=== PATIENT | female | born 1955 | race Caucasian/White ===

== ENCOUNTER 2025-04-26 02:33 | Observation (INO) | payer MEDICARE, SELFPAY ==
[2025-04-26] VITALS (11 sets, daily range): BP systolic 125–214; BP diastolic 64–110; PULSE 60–95; RESP 14–20; TEMP 36.6–37.1; O2SAT 94–96; BMI 30.7; BMI 30.9
--- NOTE | 2025-04-26 02:38 | PC.NURSE ---
Patient arrived to the floor via stretcher @ 0324
--- NOTE | 2025-04-26 03:04 | ECG_ITS ---
APPROVED REPORT Exam: Resting ECG HR:67 bpm ECG Measurements Heart Rate 67 AXES VA 169 P 17 QRSd 86 QRS -24 QT 448 T 132 QTc 463 Conclusion SINUS RHYTHM MODERATE VOLTAGE CRITERIA FOR LVH, CONSIDER NORMAL VARIANT [MEETS CRITERIA IN ONE OF: R(aVL), S(V1), R(V5), R(V5/V6)+S(V1)] INFERIOR MYOCARDIAL INFARCTION , PROBABLY OLD [40+ ms Q WAVE AND/OR ST/T ABNORMALITY IN II/aVF] MODERATE T-WAVE ABNORMALITY, CONSIDER LATERAL ISCHEMIA [-0.1+ mV T-WAVE IN I/aVL/V5/V6] Electronically signed by : TERESA ULLOA, 04/26/2025 23:12:38
--- NOTE | 2025-04-26 03:07 | P.HP_ITS ---
<Statement entered by Channing Roldan MD - 04/26/25 18:39> Personally evaluated the patient and agree with plan of care as outlined by the [employer]. Patient's TFTs noted to be very abnormal, TSH 108, free T4 0.03. Patient has a history of hypothyroidism, has not been taking her levothyroxine per fill history. In fact, does not seem patient knows which medications she takes. She has had intermittent nausea/vomiting since August 2024. Also endorses weight gain, decreased energy, dry skin, brittle hair all consistent with hypothyroidism. Started IV levothyroxine 112 mcg, liothyronine 5 mcg twice daily. Follow-up morning TSH, free T4, T3. She was also noted to have new T wave inversions at [facility], possibly related to hypothyroidism. Cardiology will be consulted for further evaluation management, patient is a chronic smoker. Follow-up ECHO in the morning. Patient has had multiple episodes of nausea/vomiting during admission, may be related to hypothyroidism. Follow-up gastric emptying study in the morning. N.p.o. at midnight. GI consulted for further recommendations. Follow-up CT abdomen/pelvis. Started irbesartan 75 mg for persistent hypertension, continue home amlodipine 5 mg. Also found to have a UTI, started IV ceftriaxone 1 g daily. History of Present Illness *Admission Date: 04/26/25 *Reason for visit:: Hypertensive urgency *History of present illness: This is a 69-year-old female with a past medical history of hypertension, RA, psoriatic arthritis who presents as a transfer from [facility] for further evaluation of hypertensive urgency. Per [facility], patient has presented to the emergency department 3 times in the last 48 hours for feeling generally unwell and associated hypertension. She was noted to have systolic blood pressures greater than 200 in the ER there and was treated twice and sent home. She came back today with similar complaints of feeling generally unwell with 1 episode of vomiting. Has adamantly denied chest pain at any point during these episodes. States that she has fallen a couple times but does not attribute the falls to dizziness. States that she would be walking and then she would just fall. Denies shortness of breath. Denies any lower extremity edema. Denies any diplopia, dysarthria or unilateral weakness Emergency Department workup at the outside hospital notable for systolic blood pressure today of 230. Patient was given nitro paste as well as clonidine with reduction in blood pressure into the 150s. Of note, patient had EKG on April 24 with LVH with inferior infarct that was age-indeterminate. Upon arrival to the emergency department today she was noted to have T wave inversions in aVL and V5 through V6 which was different from prior EKG. Given her associated generalized weakness and hypertension it was felt she would benefit from cardiac evaluation given EKG changes. She presents today to our hospital completely asymptomatic. Blood pressure normalized to 120/70. States that she feels completely normal except for being tired and wanting to go to sleep. Denies chest pain. Denies headache. Denies dizziness. Denies nausea. Denies feeling unwell at this time Of note, troponins at the outside hospital negative throughout all visits. All other labs stable except for mild hypokalemia [facility] Disclaimer: The information contained in this section may have been updated after the patient was seen, as this information can be updated by other users. Medical History (Updated 04/26/25 @ 03:24 by SALEEM Beebe) Leaky heart valve Rheumatoid arthritis Hypertensive disorder Surgical History (Updated 04/26/25 @ 03:07 by Rajani Mejias RN) History of cholecystectomy History of bowel resection History of hysterectomy Social History (Updated 04/26/25 @ 03:04 by Rajani Mejias RN) Smoking Status: Current every day smoker alcohol intake: never current occupational status: other Travel in the last 8 weeks?: None Review of Systems Review of Systems Review of systems:: pertinent systems reviewed and negative unless documented below Review of systems (narrative): Negative except for HPI Meds Home Medications and Allergies Home Medications ?Medication ?Instructions ?Recorded ?Confirmed ?Type amlodipine 2.5 mg tablet 2.5 mg PO DAILY 04/26/25 History duloxetine 20 mg capsule,delayed 20 mg PO DAILY 04/26/25 History release fluconazole 150 mg tablet 150 mg PO DAILY 04/26/25 History hydroxychloroquine 200 mg tablet 200 mg PO DAILY 04/2604/26/25 History leflunomide 10 mg tablet 10 mg PO DAILY 04/26/2504/13 History omeprazole 10 mg capsule,delayed 10 mg PO DAILY 04/26/25 History release New Prescriptions to Start Prescriptions: Allergies Allergy/AdvReac Type Severity Reaction Status Date / Time Penicillins Allergy Unknown Verified 04/26/25 02:51 allergy reaction upadacitinib (From Rinvoq) Allergy Unknown Verified 04/26/25 02:51 allergy reaction Exam Constitutional Constitutional: no acute distress *Routine HEENT Exam Head: Present normocephalic Eye: Present EOMI and PERRL ENT: Present mucous membranes moist *Routine Neck Exam Neck: Present supple; Absent lymphadenopathy *Routine Respiratory Exam Respiratory: Present CTA bilaterally *Routine Cardiovascular Exam Cardiovascular: Present RRR *Routine Abdominal Exam Abdominal: Present soft and normoactive bowel sounds; Absent tenderness *Routine Rectal Exam Rectal:: deferred *Routine Genitalia Exam Genitalia:: deferred *Routine Extremities Exam Extremities: Absent cyanosis, clubbing or edema *Routine Skin Exam Skin: Present warm; Absent rash *Routine Neurological Exam Neurological: Present alert and oriented X3 Assessment and Plan *Assessment and plan (1) Abnormal EKG: Status: Acute Category: Medical Code(s): R94.31 - Abnormal electrocardiogram [ECG] [EKG] (2) Hypertensive urgency: Status: Acute Category: Medical Code(s): I16.0 - Hypertensive urgency (3) Psoriatic arthritis: Status: Acute Category: Medical Code(s): L40.50 - Arthropathic psoriasis, unspecified (4) Rheumatoid arthritis: Status: Acute Category: Medical Code(s): M06.9 - Rheumatoid arthritis, unspecified Plan #Hypertensive urgency #Abnormal EKG Per reports patient has had multiple episodes at [facility] ER for her systolic blood pressures greater than 200s. Has been treated and discharged home. Today she presented and was noted to have T wave inversions in aVL and V5 through V6. Troponin negative across multiple visits at the ER at [facility]. Troponin here pending Received nitroglycerin and clonidine at [facility] with reduction in blood pressure to systolic 120 Patient on amlodipine 2.5 mg monotherapy at home Will increase dosage for a.m. and adjust medications according to blood pressure Echocardiogram on Sunday morning Cardiology consult reports cardiology workup years ago. Has not had anything recent. Denies any stress testing in the last 10 years. Denies any recent echocardiogram Currently asymptomatic CT head at outside hospital negative #Vomiting Reports vomiting only when blood pressure is elevated. Is not nauseated at this time. Will defer any abdominal imaging #Psoriatic arthritis #Psoriatic arthritis #Rheumatoid arthritis Continue home hydroxychloroquine #Hypokalemia K of 3.4 at the outside hospital. Repeat labs pending. Replace per protocol
--- NOTE | 2025-04-26 03:10 | PC.NURSE ---
Admission assessments were completed by me to the best of my ability, for the patient kept falling asleep within seconds of asking questions. However, patient is alert and oriented x4. Medical history was also confirmed using the patient's [facility] documents. Home medication reconciliation was completed via the [facility] medical documents as well. Patient denies any symptoms (chest pain, dizziness, lightheadedness, nausea, etc.) at this time upon initial assessment. She remains resting in bed with eyes closed, respirations are even and unlabored on room air with minimal snoring, and she is in no apparent distress. EKG obtained after arrival to the second floor per Gabi He ACNP request (performed at 03:04). On continuous cardiac telemetry. Vital signs currently stable (see documentation for 03:19).
[2025-04-26 03:35] LABS: Hematocrit 38.4 % (37.0-47.0); Hemoglobin 12.8 g/dL (12.2-16.2); Immature Granulocytes % 0.2 %; Mean Corpuscular HGB Conc 33.3 g/dL (31.8-35.4); Mean Corpuscular Hemoglobin 30.0 pg (27.0-31.2); Mean Corpuscular Volume 89.9 fl (81-99); Nucleated Red Blood Cells % 0 %; Platelet Count 169 K/mm3 (142-424); Red Blood Count 4.27 M/mm3 (4.20-5.40); Red Cell Distribution Width-SD 48.9 fL; White Blood Count 6.2 K/mm3 (4.8-10.8)
[2025-04-26 03:44] LABS: Albumin Level 3.8 g/dl (3.5-5.0); Chloride 106 mmol/L (98-107); Potassium 3.5 mmoL/L (3.5-5.1); Sodium 137 mmol/L (136-145)
[2025-04-26 03:46] LABS: Cholesterol 222 mg/dl (140-200); HDL Cholesterol 42 mg/dl (40-60); Triglycerides 235 mg/dl (30-150)
[2025-04-26 03:47] LABS: Alanine Aminotransferase 14 U/L (12-78); Albumin/Globulin Ratio 1.5 (1.1-1.8); Alkaline Phosphatase 63 U/L (38-126); Anion Gap 11.5 mEq/L (5-15); Aspartate Amino Transferase 27 U/L (14-36); Bilirubin,Total 0.7 mg/dl (0.2-1.3); Blood Urea Nitrogen 14 mg/dl (7-17); Calcium 9.0 mg/dl (8.4-10.2); Carbon Dioxide 23 mmol/L (22.0-30.0); Creatinine Clearance Estimated 66 mL/min (50-200); Creatinine,Serum 0.90 mg/dl (0.52-1.04); Estimated Glomerular Filt Rate 62 ml/min (>60); GFR (African American) 76 ML/MIN (>60); Globulin 2.5 g/dL (1.3-3.2); Glucose 119 mg/dl (74-100); Total Protein,Serum 6.3 g/dl (6.3-8.2)
[2025-04-26 03:56] LABS: NT Pro Brain Natriuretic Pep. 719 pg/mL (0-125)
[2025-04-26 04:01] LABS: Troponin I < 0.01 ng/ml (0.00-0.034)
[2025-04-26 04:33] LABS: Hemoglobin A1C 5.7 % (4.0-6.0)
[2025-04-26 08:15] LABS: Troponin I < 0.01 ng/ml (0.00-0.034)
[2025-04-26] MEDS: AMLODIPINE 5MG TABLET 5 MG PO (09:04)
[2025-04-26] MEDS: POTASSIUM CHLORIDE 20MEQ TAB 40 MEQ PO ×2 (09:04→11:45)
[2025-04-26] MEDS: ASPIRIN EC 81MG TABLET 81 MG PO (09:04)
[2025-04-26 09:26] LABS: Troponin I < 0.01 ng/ml (0.00-0.034)
[2025-04-26] MEDS: ONDANSETRON 4MG/2ML VIAL 4 MG IV (09:34)
[2025-04-26 10:39] LABS: Thyroid Stimulating Hormone 108.00 uIU/mL (0.465-4.68)
--- NOTE | 2025-04-26 10:47 | P.CONPHA_ITS ---
Pharmacy Intervention Comments: MEDICATION RECONCILIATION COMPLETE VIA PHONE CALL TO [facility] IN [place].
--- NOTE | 2025-04-26 10:47 | HMH.PHAINT1 ---
Pharmacy Intervention Comments: MEDICATION RECONCILIATION COMPLETE VIA PHONE CALL TO [facility] IN [place].
[2025-04-26 11:14] LABS: Free T4 (Free Thyroxine) 0.30 ng/dl (0.78-2.19)
[2025-04-26] MEDS: NICOTINE 21MG/24HR PATCH 21 MG TD (11:46)
[2025-04-26] MEDS: METOCLOPRAMIDE HCL 10MG/2ML VIAL 10 MG IVP (11:46)
[2025-04-26] MEDS: LEVOTHYROXINE SODIUM 100 MCG VIAL 150 MCG IV (11:46)
[2025-04-26 11:53] LABS: Microscopic, Urine URINE MICROSCOPIC (MICROSCOPIC)
[2025-04-26 11:54] LABS: Color,Urine YELLOW (Yellow); Glucose,Urine (UA) Negative (Negative); Ketones,Urine TRACE (Negative); Leukocyte Esterase,Urine TRACE (Negative); PH,Urine 5.5 (5.0-8.5); Protein,Urine 2+ (Negative); Specific Gravity, Urine >= 1.030 (1.005-1.030); Urobilinogen,Urine 1.0 EU/dl (0.2)
[2025-04-26 11:58] LABS: Bilirubin,Urine 1+ (Negative)
[2025-04-26 12:34] LABS: Bacteria,Urine 2+ /lpf
[2025-04-26 12:35] LABS: WBC,Urine 20-50 #/hpf (0-3)
[2025-04-26 13:29] LABS: Troponin I < 0.01 ng/ml (0.00-0.034)
[2025-04-26] MEDS: CEFTRIAXONE 1 GM 1 GM in 0.9 % SODIUM CHLORIDE 50 ML IV (13:56)
--- NOTE | 2025-04-26 14:25 | CT_ITS ---
PROCEDURE INFORMATION: Exam: CT Abdomen And Pelvis With Contrast Exam date and time: 04/26/2025 3:58 PM Age: 69 years old Clinical indication: Nausea and vomiting; Additional info: Intractable n/v TECHNIQUE: Imaging protocol: Computed tomography of the abdomen and pelvis with contrast. Radiation optimization: All CT scans at this facility use at least one of these dose optimization techniques: automated exposure control; mA and/or kV adjustment per patient size (includes targeted exams where dose is matched to clinical indication); or iterative reconstruction. Contrast material: ISOVUE; Contrast volume: 75 ml; Contrast route: IV; COMPARISON: No relevant prior studies available. FINDINGS: Lungs: Patchy alveolar opacities in the peripheral lung bases bilaterally, possibly chronic fibrosis and subsegmental atelectasis although can not exclude pulmonary infiltrates. Heart: Heart size upper limits of normal. Coronary arteries: Coronary artery calcification is partially visualized, at least moderate in severity. Diaphragm: Moderate-sized hiatal hernia. Moderate distal esophageal wall thickening which may represent reactive changes of clinically described recent vomiting, versus esophagitis. No evidence of perforation or obstruction. Liver: Mild generalized hepatic steatosis. Normal contour. No mass lesions. No intrahepatic biliary ductal dilatation. Gallbladder and biliary ducts: Prior cholecystectomy with no significant dilatation of the common bile duct. Pancreas: Normal. No inflammatory changes or ductal dilation. Spleen: Granulomatous calcifications in the spleen without acute splenic abnormality. Adrenal glands: Normal. No adrenal mass. Kidneys and ureters: No acute abnormalities. No hydronephrosis or hydroureter. No urinary tract stones are identified. Stomach and bowel: Question mild wall/fold thickening in the small bowel and portions of the colon, although contracted status of the colon may be significantly contributing to the appearance. The findings are suspicious for mild enterocolitis. No evidence of bowel obstruction or perforation. There are a few colonic diverticula present without evidence of acute diverticulitis. Appendix: The appendix is not identified. No secondary signs of appendicitis. Intraperitoneal space: No peritoneal free fluid or air. Vasculature: No acute vascular abnormalities. Moderate calcific atherosclerosis. Lymph nodes: No adenopathy. Urinary bladder: The urinary bladder is largely contracted with wall thickening which may relate to its contracted status. Mild adjacent stranding. Correlate clinically for evidence of cystitis. Reproductive: Prior hysterectomy. Bones/joints: No acute osseous abnormalities. Mild lumbar spondylosis. Moderate disc osteoarthritic changes L1-L2. Soft tissues: No acute soft tissue abnormalities. Prior midline periumbilical hernia repair. Small hernia just to the right of the midline supraumbilical mesh component on series 3, image 67, with partial herniation of the anterior wall of an adjacent small bowel loop. No evidence of associated bowel obstruction or strangulation. IMPRESSION: 1. Findings suspicious for mild enterocolitis. No evidence of bowel obstruction or perforation. 2. Moderate-sized hiatal hernia. Moderate distal esophageal wall thickening which may represent reactive changes of clinically described recent vomiting, versus esophagitis. No evidence of perforation or obstruction. 3. Moderate peripheral interstitial and alveolar opacities in the lung bases, possibly chronic fibrosis and subsegmental atelectasis although can not exclude bilateral basilar infiltrates. 4. The urinary bladder is largely contracted with moderate wall thickening which may relate to its contracted status although there is mild adjacent stranding. Correlate clinically for evidence of cystitis. 5. Mild hepatic steatosis. 6. Additional nonemergent findings detailed above.
[2025-04-26] MEDS: PANTOPRAZOLE 40MG TABLET 40 MG PO ×2 (15:12→20:05)
[2025-04-26] MEDS: IOPAMIDOL-370 (76%);100ML BOTTLE 75 ML IV (16:01)
[2025-04-26] MEDS: SODIUM CHLORIDE 0.9% 10ML SYR (RAD ONLY) 10 ML IV (16:01)
[2025-04-26] MEDS: PROMETHAZINE HCL 25MG/ML 1ML VIAL 25 MG IV (16:26)
[2025-04-26] MEDS: SODIUM CHLORIDE 0.9% 25ML BAG 25 ML IV (16:26)
--- NOTE | 2025-04-26 17:05 | PC.NURSE ---
Addendum entered by Katherine Lomeli RN 04/26/25 17:48: Irbesartan 75mg ordered per MD. MD stated to given 2100 dose early d/t hypertension. Given as a unscheduled dose per OCT. Addendum entered by Katherine Lomeli RN 04/26/25 17:38: Pt's BP elevated this afternoon. Manual BP obtained. 206/110. MD notified. Awaiting response. No complaints at this time. Original Note: Pt is A&OX4. Vital signs stable tolerating room air. IV abx infused per OCT. Pt with c/o nausea and vomiting this shift. PRN nausea medication given per OCT with relief. CT of abdomen completed today. ECHO ordered. Potassium replaced per protocol. Cardiology consulted. NPO at midnight. Pt resting comfortably sitting up in bed with no further needs voiced at this time. Family at bedside. Call light within reach. Bed alarm in place for safety.
[2025-04-26] MEDS: IRBESARTAN 75MG TABLET 75 MG PO (17:46)
[2025-04-26] MEDS: HYDROXYCHLOROQUINE SULFATE 200MG TABLET 200 MG PO (20:05)
[2025-04-26] MEDS: LIOTHYRONINE 5 MCG 1 EACH PO (20:05)
[2025-04-27] VITALS: BP 152/87; PULSE 80; PULSE 88; RESP 14; TEMP 36.8; O2SAT 98
[2025-04-27 04:00] VITALS: BP 159/76; PULSE 101; PULSE 80; RESP 18; TEMP 36.8; O2SAT 95; BMI 30.1
--- NOTE | 2025-04-27 04:45 | PC.NURSE ---
Patient is alert and oriented x4. She was observed to be resting in bed with eyes closed, respirations even and unlabored on room air, and no apparent distress throughout the majority of the night. A family member has remained at the bedside. She has not had any complaints of nausea/vomiting, headaches, dizziness, chest pain, etc. this shift. Blood pressures are elevated but have been 150s to 160s systolic/70s to 80s diastolic throughout this shift. Normal sinus rhythm on telemetry. Lung sounds remain clear but diminished. SCDs applied for VTE prophylaxis. Patient has remained NPO since midnight pending GI and cardiology consults. Self-turns in bed, gets up with assistance during ambulation/transfers. Scheduled medications were administered per OCT (apart from Irbesartan, for the 21:00 dose was given earlier). Electrolyte replacement protocol as directed. At this time, the patient remains resting in bed. No acute changes noted thus far. Call light within reach.
--- NOTE | 2025-04-27 06:00 | NM_ITS ---
FINAL REPORT TECHNIQUE: The patient received a standard meal with 0.54 MCI of TC sulfur colloid. Images of the abdomen were obtained. The T 1/2 was calculated. CLINICAL HISTORY: Nausea/vomiting after eating for several months 10:30 am 0.54 mci tc sulfur colloid injected into 2 whole eggs and white toast with butter 6 oz water FINDINGS: Images of the abdomen are unremarkable. The T 1/2 is 63 minutes. IMPRESSION: Normal T-1/2. No evidence of gastroparesis or gastric outlet obstruction. Reviewed, Interpreted and Dictated by Tasha Muller MD Transcribed by Leidy Arce Authenticated and [facility]
[2025-04-27] MEDS: LEVOTHYROXINE SODIUM 100 MCG VIAL 112 MCG IV (06:16)
[2025-04-27 06:23] LABS: Hematocrit 40.6 % (37.0-47.0); Hemoglobin 13.4 g/dL (12.2-16.2); Immature Granulocytes % 0.4 %; Mean Corpuscular HGB Conc 33.0 g/dL (31.8-35.4); Mean Corpuscular Hemoglobin 29.5 pg (27.0-31.2); Mean Corpuscular Volume 89.4 fl (81-99); Nucleated Red Blood Cells % 0 %; Platelet Count 179 K/mm3 (142-424); Red Blood Count 4.54 M/mm3 (4.20-5.40); Red Cell Distribution Width-SD 49.3 fL; White Blood Count 5.3 K/mm3 (4.8-10.8)
[2025-04-27 06:41] LABS: Alanine Aminotransferase 16 U/L (12-78); Albumin Level 4.0 g/dl (3.5-5.0); Albumin/Globulin Ratio 1.4 (1.1-1.8); Alkaline Phosphatase 58 U/L (38-126); Anion Gap 8.4 mEq/L (5-15); Aspartate Amino Transferase 29 U/L (14-36); Bilirubin,Total 0.6 mg/dl (0.2-1.3); Blood Urea Nitrogen 11 mg/dl (7-17); Calcium 8.4 mg/dl (8.4-10.2); Carbon Dioxide 25 mmol/L (22.0-30.0); Chloride 107 mmol/L (98-107); Creatinine Clearance Estimated 64 mL/min (50-200); Creatinine,Serum 0.90 mg/dl (0.52-1.04); Estimated Glomerular Filt Rate 62 ml/min (>60); GFR (African American) 76 ML/MIN (>60); Globulin 2.9 g/dL (1.3-3.2); Glucose 98 mg/dl (74-100); Potassium 3.4 mmoL/L (3.5-5.1); Sodium 137 mmol/L (136-145); Total Protein,Serum 6.9 g/dl (6.3-8.2)
--- NOTE | 2025-04-27 07:00 | CA_ITS ---
APPROVED REPORT EXAM: Comprehensive 2D, Doppler, and color-flow Echocardiogram [employer]: Emmy Rao CRT Ht: 5 ft 1 in Wt: 168lbs BSA: 1.75 BP: 168/92 mmHg Indications: Abnormal ECG, Hypertension/HDD emergency, noncompliant with thyroid meds 2D Dimensions LA Volume 24.80 mL LA Volume Index 13.80 mL/m2 (M/F) 16-34 M-Mode Dimensions RVDd 2.00 cm (0.9-2.6) LA Diam 1.90 cm (1.9-4.0) LVDd 3.28 cm (3.5-5.7) LVDs 1.93 cm (3.5-5.7) IVSd 1.93 cm (0.6-1.1) PWd 1.30 cm (0.6-1.1) EF (Teich) 73.30% FS 41.20% EDV (Teich) 43.50 mL TAPSE 1.47 (<1.7) ESV (Teich) 11.60 mL LV Diastology E Decel Time 150 (160-240 msec) E/A Ratio 0.55 MED A' 6.80 cm/s LAT A' 8.30 cm/s Aortic Valve AI PHT 481.00 ms AO Peak GR. 5.10 mmHg Mitral Valve MV E Max Yonis. 37.0 (40-130 cm/s) MV A Velocity 67.0 (40-130 cm/s) E/A Ratio 0.55 MV PHT 44.0 ms Pulmonary Valve PV Peak Velocity 95.0 (50-150 cm/s) Tricuspid Valve TR P. Velocity 109.00 cm/s RAP Estimate 10.00 mmHg RVSP 14.70 mmHg Left Ventricle The left ventricle is normal size. Left ventricular systolic function is normal. The left ventricular ejection fraction is within the normal range. Proximal septal thickening is present. There is marked increase in left ventricular wall thickness. IVSd 1.4 cm. There is no LVOT obstruction at rest. There is normal LV segmental wall motion. The left ventricular diastolic function is normal. LVEF is 65%. Right Ventricle The right ventricle is normal size. The right ventricular systolic function is normal. Atria The left atrium is mildly dilated. The right atrium size is normal. There is no color Doppler evidence of interatrial shunt. Aortic Valve The aortic valve is mildly thickened. There is no hemodynamically significant aortic valvular stenosis. Mild aortic regurgitation is present. Mitral Valve The mitral valve is normal in structure. No evidence of mitral valve stenosis. Trace mitral regurgitation is present. Tricuspid Valve The tricuspid valve leaflets are thin and pliable. Trace tricuspid regurgitation. There is insufficient TR jet to estimate RVSP. Pulmonic Valve The pulmonary valve is grossly normal in structure. Trace pulmonic valve regurgitation is present. Great Vessels The aortic root is normal in size. IVC is normal in size and collapses >50% with inspiration. Pericardium There is no pericardial effusion. Other Information Study Quality: Fair Conclusion Normal biventricular systolic function. Marked increase in left ventricular wall thickness. IVSd 1.4 cm. There is no LVOT obstruction at rest. Mild LA dilation. Mild AI. In the setting of marked increase in IVSd, further evaluation with cardiac MRI (HCM protocol) is suggested. Electronically signed by : Andria Raymond MD 04/27/2025 15:20:11
[2025-04-27 07:10] LABS: Thyroid Stimulating Hormone 70.30 uIU/mL (0.465-4.68)
[2025-04-27 07:15] VITALS: BP 169/111; PULSE 88; RESP 18; TEMP 36.8; O2SAT 95
[2025-04-27 07:32] LABS: Free T4 (Free Thyroxine) 0.48 ng/dl (0.78-2.19)
--- NOTE | 2025-04-27 07:59 | CA_ITS ---
FINAL REPORT TECHNIQUE: Spectral and color Doppler exam CLINICAL HISTORY: HTN,SMOKER COMPARISON: None FINDINGS: DOPPLER RENAL VESSELS HISTORY: Hypertension . FINDINGS: Intrarenal resistive indices on the right are 0.44-0.5, normal . Intrarenal resistive indices on the left are 0.54-0.75, normal . Renal size is normal and symmetric. Right main renal artery systolic velocity: 116 cm/sec. Aortic-right renal artery flow velocity ratio: 0.7 COMMENT: No evidence of hemodynamically significant renal artery stenosis . Left main renal artery systolic velocity: 112 cm/sec. Aortic-left renal artery flow velocity ratio: 0.7 COMMENT: No evidence of hemodynamically significant renal artery stenosis . IMPRESSION: No evidence of hemodynamically significant renal artery stenosis CTA or gadolinium-enhanced MR may be considered as a more sensitive exam. Alternatively noncontrast MRI may be considered for assessing main renal arteries for stenosis as a more sensitive exam if the patient has renal insufficiency. Reviewed, Interpreted and Dictated by Tasha Muller MD Transcribed by Blanca Fuentes Authenticated and [facility]
[2025-04-27 08:00] VITALS: PULSE 106
[2025-04-27 12:16] LABS: Triiodothyronine (T3) Free 1.2 pg/mL (2.0-4.4)
[2025-04-27 12:30] VITALS: O2SAT 95
[2025-04-27] MEDS: HYDROXYCHLOROQUINE SULFATE 200MG TABLET 200 MG PO (12:47)
[2025-04-27] MEDS: ASPIRIN EC 81MG TABLET 81 MG PO (12:47)
[2025-04-27] MEDS: AMLODIPINE 10MG TABLET 10 MG PO (12:47)
[2025-04-27] MEDS: LIOTHYRONINE 5 MCG 1 EACH PO (12:48)
[2025-04-27] MEDS: NICOTINE 21MG/24HR PATCH 21 MG TD (12:48)
[2025-04-27] MEDS: PANTOPRAZOLE 40MG TABLET 40 MG PO (12:48)
[2025-04-27] MEDS: CEFTRIAXONE 1 GM 1 GM in 0.9 % SODIUM CHLORIDE 50 ML IV (12:48)
[2025-04-27] MEDS: TC99M SULF.COLLOID;1 DOSE (UP TO 20 MCI) IV (12:52)
--- NOTE | 2025-04-27 13:18 | EXP.GE.CONS ---
History of Present Illness *Admission Date: 04/26/25 *History of present illness: This is a 69-year-old female with a past medical history of hypertension, RA, psoriatic arthritis who presents as a transfer from [facility] for further evaluation of hypertensive urgency. Per [facility], patient has presented to the emergency department 3 times in the last 48 hours for feeling generally unwell and associated hypertension. She was noted to have systolic blood pressures greater than 200 in the ER there and was treated twice and sent home. She came back today with similar complaints of feeling generally unwell with 1 episode of vomiting. Has adamantly denied chest pain at any point during these episodes. States that she has fallen a couple times but does not attribute the falls to dizziness. States that she would be walking and then she would just fall. Denies shortness of breath. Denies any lower extremity edema. Denies any diplopia, dysarthria or unilateral weakness Emergency Department workup at the outside hospital notable for systolic blood pressure today of 230. Patient was given nitro paste as well as clonidine with reduction in blood pressure into the 150s. Of note, patient had EKG on April 24 with LVH with inferior infarct that was age-indeterminate. Upon arrival to the emergency department today she was noted to have T wave inversions in aVL and V5 through V6 which was different from prior EKG. Given her associated generalized weakness and hypertension it was felt she would benefit from cardiac evaluation given EKG changes. She presents today to our hospital completely asymptomatic. Blood pressure normalized to 120/70. States that she feels completely normal except for being tired and wanting to go to sleep. Denies chest pain. Denies headache. Denies dizziness. Denies nausea. Denies feeling unwell at this time Of note, troponins at the outside hospital negative throughout all visits. All other labs stable except for mild hypokalemia per admission H&P This is a 69-year-old female patient who was admitted for the above symptoms. The patient has also been having nausea vomiting and diarrhea intermittently for many months. GI was consulted for the nausea and vomiting. The patient reports that she had been having nausea and vomiting for months and developed diarrhea with urgency a couple times a week. She had lost 30 pounds because of this. She underwent EGD and colonoscopy with Dr. Sullivan in [place] about 2 months ago. She reports 5 polyps on colonoscopy but no other findings. She reports no findings on EGD but for inflammation . She denies H. pylori. Mild enterocolitis, moderate size hiatal hernia and moderate distal esophageal wall thickening possibly related with recent esophagitis seen on CT scan. The patient has a benign exam. She denies any current nausea or vomiting. She denies much bloating belching or gassiness. She does report persistent heartburn and reflux but that is not new. She just completed a gastric emptying study here that was normal with a T1/2 time equal to 63 minutes. She reports her last day of excessive diarrhea was Sunday, 3 days ago. She reports soft formed bowel movements daily in between episodes of diarrhea at home. She is status post cholecystectomy. She denies any melena hematochezia or mucus in her stool. She plans to follow-up with Dr. Sullivan after discharge. She does note that when her blood pressure gets elevated she will develop vomiting sometimes. She is not sure if that was part of her recent nausea and vomiting episodes. [facility] Disclaimer: The information contained in this section may have been updated after the patient was seen, as this information can be updated by other users. Medical History (Updated 04/27/25 @ 13:26 by Mitzi J Stump, [employer]) Leaky heart valve Rheumatoid arthritis Hypertensive disorder Surgical History (Updated 04/26/25 @ 03:07 by Rajani Mejias RN) History of cholecystectomy History of bowel resection History of hysterectomy Social History (Updated 04/26/25 @ 03:28 by SALEEM Beebe) Smoking Status: Current every day smoker alcohol intake: never current occupational status: other Travel in the last 8 weeks?: None Have you lived/traveled outside [place] in past 30 days?: No Contact w/someone who lives/traveled outside US past 30 days?: No Exposure to someone with infectious disease in past 14 days?: No Do you have a fever (greater than 100.4 F or 38 C)?: No Have you tested positive for COVID-19?: No Exposed to someone with COVID-19 in past 14 days?: No Do you have a sore throat?: No Do you have a cough?: No Do you have any weakness?: No Do you have any diarrhea?: No Are you experiencing any unusual bleeding?: No Do you have any muscle aches/pain?: No Do you have any abdominal pain?: No Are you experiencing loss of taste or smell?: No Review of Systems Constitutional Constitutional: Reports system reviewed and no additional complaints, except as documented Eyes Eyes: Reports system reviewed and no additional complaints, except as documented ENT Ears, Nose, Mouth, and Throat: Reports system reviewed and no additional complaints, except as documented *Cardiovascular Cardiovascular: Reports as per HPI *Respiratory Respiratory: Reports system reviewed and no additional complaints, except as documented *Gastrointestinal Gastrointestinal: Reports diarrhea, Reports fecal incontinence, Reports nausea and Reports vomiting Comments: Urgency *Musculoskeletal Musculoskeletal: Reports system reviewed and no additional complaints, except as documented Integumentary/Breasts Skin/Breast: Reports system reviewed and no additional complaints, except as documented *Neurologic Neurologic: Reports system reviewed and no additional complaints, except as documented Meds Home Medications and Allergies Home Medications ?Medication ?Instructions ?Recorded ?Confirmed ?Type amlodipine 2.5 mg tablet 2.5 mg PO DAILY 04/26/25 04/26/25 History duloxetine 60 mg capsule,delayed 60 mg PO DAILY 04/26/25 04/26/25 History release hydroxychloroquine 200 mg tablet 200 mg PO BID 04/26/25 04/26/25 History leflunomide 20 mg tablet 20 mg PO DAILY 04/26/25 04/26/25 History omeprazole 20 mg tablet,delayed 20 mg PO BID 04/26/25 04/26/25 History release New Prescriptions to Start Prescriptions: Allergies Allergy/AdvReac Type Severity Reaction Status Date / Time Penicillins Allergy Unknown Verified 04/26/25 02:51 allergy reaction upadacitinib (From Rinvoq) Allergy Unknown Verified 04/26/25 02:51 allergy reaction Exam (Inpt) Vital signs and Labs for Last 24 Hours: Temp Pulse Resp BP Pulse Ox O2 Del Method 98.3 F 106 H 18 169/111 H 95 Room Air 04/27/25 07:15 04/27/25 08:00 04/27/25 07:15 04/27/25 07:15 04/27/25 12:30 04/27/25 13:00 Laboratory Results - last 24 hr 04/26/25 06:20: Free T3 1.2 L 04/26/25 12:35: Troponin I < 0.01 04/27/25 05:53: WBC 5.3, RBC 4.54, Hgb 13.4, Hct 40.6, MCV 89.4, MCH 29.5, MCHC 33.0, RDW 15.2, Plt Count 179, MPV 10.8 H, Neut % (Auto) 70.3, Lymph % (Auto) 14.2, [place] % (Auto) 11.6 H, Eos % (Auto) 2.4, Baso % (Auto) 1.1, Neut # (Auto) 3.8, Lymph # (Auto) 0.8, [place] # (Auto) 0.6, Eos # (Auto) 0.1, Baso # (Auto) 0.1, Sodium 137, Potassium 3.4 L, Chloride 107, Carbon Dioxide 25, Anion Gap 8.4, BUN 11, Creatinine 0.90, Estimated Creat Clear 64, Estimated GFR 62, Est GFR ( Amer) 76, Glucose 98, Calcium 8.4, Total Bilirubin 0.6, AST 29, ALT 16, Alkaline Phosphatase 58, Total Protein 6.9, Albumin 4.0, Globulin 2.9, Albumin/Globulin Ratio 1.4, TSH 70.30 H D, Free T4 0.48 L I & O for Labs for Last 24 Hours: Intake & Output 04/25/25 04/26/25 04/27/25 09/16/25 11:59 11:59 11:59 11:59 Intake Total 360 920 0 Output Total 0 300 1000 Balance 360 620 -1000 Weight 76.294 kg 74.298 kg Constitutional: no acute distress and cooperative Head: Present normocephalic and atraumatic Respiratory: Present CTA bilaterally Cardiac: Present Reg Rate and Rhythm GI: Present soft, distention (Mild soft distention) and normal bowel sounds; Absent tenderness Extremities: Present normal inspection Skin: Present intact Results Labs 04/27/25 05:53 04/27/25 05:53 Labs: Laboratory Results - last 24 hr 04/26/25 06:20: Free T3 1.2 L 04/26/25 12:35: Troponin I < 0.01 04/27/25 05:53: WBC 5.3, RBC 4.54, Hgb 13.4, Hct 40.6, MCV 89.4, MCH 29.5, MCHC 33.0, RDW 15.2, Plt Count 179, MPV 10.8 H, Neut % (Auto) 70.3, Lymph % (Auto) 14.2, [place] % (Auto) 11.6 H, Eos % (Auto) 2.4, Baso % (Auto) 1.1, Neut # (Auto) 3.8, Lymph # (Auto) 0.8, [place] # (Auto) 0.6, Eos # (Auto) 0.1, Baso # (Auto) 0.1, Sodium 137, Potassium 3.4 L, Chloride 107, Carbon Dioxide 25, Anion Gap 8.4, BUN 11, Creatinine 0.90, Estimated Creat Clear 64, Estimated GFR 62, Est GFR ( Amer) 76, Glucose 98, Calcium 8.4, Total Bilirubin 0.6, AST 29, ALT 16, Alkaline Phosphatase 58, Total Protein 6.9, Albumin 4.0, Globulin 2.9, Albumin/Globulin Ratio 1.4, TSH 70.30 H D, Free T4 0.48 L Assessment and Plan *Assessment and plan (1) Nausea & vomiting: Status: Acute Category: Medical Code(s): R11.2 - Nausea with vomiting, unspecified (2) Diarrhea: Status: Acute Category: Medical Code(s): R19.7 - Diarrhea, unspecified (3) Weight loss: Status: Acute Category: Medical Code(s): R63.4 - Abnormal weight loss (4) Fecal urgency: Status: Acute Category: Medical Code(s): R15.2 - Fecal urgency Plan 1. Nausea and vomiting/weight loss Patient reports nausea vomiting weight loss started at the beginning of the year. She saw Dr. Sullivan and had panendoscopy 2 months ago. Persistent heartburn and reflux but no nausea and vomiting today. Gastric emptying study today was normal. T1/2 equal 63 minutes. Patient denies any findings but inflammation on recent EGD with Dr. Sullivan but we do not have those records. She plans to follow-up with Dr. Sullivan upon discharge. As she has had the symptoms recently investigated, I do not see a reason to repeat endoscopy. I suggest the addition of [id number] Iberogast twice a day before meals upon discharge. Continue PPI. 2. Diarrhea/urgency Patient reports intermittent episodes of urgency and diarrhea 4-5 times a day this is occurring twice a week and has been for multiple months. She denies any findings on colonoscopy with Dr. Sullivan 2 months ago and plans to follow-up with Dr. Sullivan as an outpatient after discharge. Mild enterocolitis possibly seen on CT scan but this has been going on for months and she has had colonoscopy. She has not had any diarrhea since Sunday. She is status post cholecystectomy. Is possible that this is related to bile acid diarrhea but I do not have the recent findings from colonoscopy. In the short-term I would just add a bulking fiber supplement to regulate some of that [id number]. I recommend Metamucil 1 tablespoon daily.
--- NOTE | 2025-04-27 13:58 | EXP.DC.SUM ---
General Admission date:: 04/26/25 HPI HPI HPI: This is a 69-year-old female with a past medical history of hypertension, RA, psoriatic arthritis who presents as a transfer from [facility] for further evaluation of hypertensive urgency. Per [facility], patient has presented to the emergency department 3 times in the last 48 hours for feeling generally unwell and associated hypertension. She was noted to have systolic blood pressures greater than 200 in the ER there and was treated twice and sent home. She came back today with similar complaints of feeling generally unwell with 1 episode of vomiting. Has adamantly denied chest pain at any point during these episodes. States that she has fallen a couple times but does not attribute the falls to dizziness. States that she would be walking and then she would just fall. Denies shortness of breath. Denies any lower extremity edema. Denies any diplopia, dysarthria or unilateral weakness Emergency Department workup at the outside hospital notable for systolic blood pressure today of 230. Patient was given nitro paste as well as clonidine with reduction in blood pressure into the 150s. Of note, patient had EKG on April 24 with LVH with inferior infarct that was age-indeterminate. Upon arrival to the emergency department today she was noted to have T wave inversions in aVL and V5 through V6 which was different from prior EKG. Given her associated generalized weakness and hypertension it was felt she would benefit from cardiac evaluation given EKG changes. She presents today to our hospital completely asymptomatic. Blood pressure normalized to 120/70. States that she feels completely normal except for being tired and wanting to go to sleep. Denies chest pain. Denies headache. Denies dizziness. Denies nausea. Denies feeling unwell at this time Of note, troponins at the outside hospital negative throughout all visits. All other labs stable except for mild hypokalemia per admission H&P This is a 69-year-old female patient who was admitted for the above symptoms. The patient has also been having nausea vomiting and diarrhea intermittently for many months. GI was consulted for the nausea and vomiting. The patient reports that she had been having nausea and vomiting for months and developed diarrhea with urgency a couple times a week. She had lost 30 pounds because of this. She underwent EGD and colonoscopy with Dr. Sullivan in [place] about 2 months ago. She reports 5 polyps on colonoscopy but no other findings. She reports no findings on EGD but for inflammation . She denies H. pylori. Mild enterocolitis, moderate size hiatal hernia and moderate distal esophageal wall thickening possibly related with recent esophagitis seen on CT scan. The patient has a benign exam. She denies any current nausea or vomiting. She denies much bloating belching or gassiness. She does report persistent heartburn and reflux but that is not new. She just completed a gastric emptying study here that was normal with a T1/2 time equal to 63 minutes. She reports her last day of excessive diarrhea was Sunday, 3 days ago. She reports soft formed bowel movements daily in between episodes of diarrhea at home. She is status post cholecystectomy. She denies any melena hematochezia or mucus in her stool. She plans to follow-up with Dr. Sullivan after discharge. She does note that when her blood pressure gets elevated she will develop vomiting sometimes. She is not sure if that was part of her recent nausea and vomiting episodes. Hospital Course Hospital Course Hospital Course: Ceci Falcon is a 69-year-old female who presented as a transfer from [facility] for constellation of symptoms including hypertension and systolics greater than 200, reversible T wave inversions on EKG, nausea/vomiting, fatigue but no chest pain or shortness of breath. #Severe hypothyroidism #Medication nonadherence ? Presented with a constellation of symptoms as above, with most likely related to hypothyroidism. ? Initial TSH 108, free T4 0.30. No evidence of myxedema. ? Patient has not been taking her levothyroxine 125 mcg, reports she does not remember to take it every day. ? Initiated on IV levothyroxine 112 mcg and liothyronine 5 mcg twice daily. TSH improved to 70, free T40.48. ? Transitioned to oral levothyroxine 125 mcg, strongly advised patient to take it every day on an empty stomach. Daughter at bedside supportive, will ensure patient is adherent to medications. ? Patient will follow-up with PCP within 1 week for further evaluation and management. Will need repeat TFTs in 6 weeks. #Nausea/vomiting #Dyspepsia ? Patient endorses frequent nausea/vomiting with meals, unable to tolerate p.o. intake initially during admission. ? There was concern of gastroparesis, however gastric emptying study did not indicate this. ? Symptoms improved with antiemetics, improvement in thyroid function. Tolerating p.o. intake without issues on day of discharge. ? GI consulted, patient has had a recent EGD with Dr. Sullivan. Will obtain records. Recommended [id number] Iberogast twice a day before meals. Continue home omeprazole. Also recommended Metamucil for chronic diarrhea. #Hypertensive urgency #Chronic abnormal EKG ? Patient not taking her medications at home. Blood pressures improved with oral agents. ? Renal duplex ultrasound ordered, pending report at this time. ? Cardiology consulted, did not recommend inpatient ischemic workup for abnormal EKG. Will follow-up outpatient. ? Discharged with carvedilol 12.5 mg twice daily, hydrochlorothiazide 25 mg, amlodipine 10 mg. ? Patient will follow-up with cardiology within 1 week for further evaluation management. #Rheumatoid arthritis ? Continue home hydroxychloroquine, leflunomide. #Anxiety/depression ? Continue home duloxetine. #GERD ? Continue home PPI. Total time spent on discharge: 31 minutes on chart review, counseling, documentation, and direct care with patient. Exam Data for Last 24 hours Vital signs and Labs for Last 24 Hours: Temp Pulse Resp BP Pulse Ox O2 Del Method 98.3 F 106 H 18 169/111 H 95 Room Air 04/27/25 07:15 04/27/25 08:00 04/27/25 07:15 04/27/25 07:15 04/27/25 12:30 04/27/25 13:00 Laboratory Results - last 24 hr 04/26/25 06:20: Free T3 1.2 L 04/27/25 05:53: WBC 5.3, RBC 4.54, Hgb 13.4, Hct 40.6, MCV 89.4, MCH 29.5, MCHC 33.0, RDW 15.2, Plt Count 179, MPV 10.8 H, Neut % (Auto) 70.3, Lymph % (Auto) 14.2, [place] % (Auto) 11.6 H, Eos % (Auto) 2.4, Baso % (Auto) 1.1, Neut # (Auto) 3.8, Lymph # (Auto) 0.8, [place] # (Auto) 0.6, Eos # (Auto) 0.1, Baso # (Auto) 0.1, Sodium 137, Potassium 3.4 L, Chloride 107, Carbon Dioxide 25, Anion Gap 8.4, BUN 11, Creatinine 0.90, Estimated Creat Clear 64, Estimated GFR 62, Est GFR ( Amer) 76, Glucose 98, Calcium 8.4, Total Bilirubin 0.6, AST 29, ALT 16, Alkaline Phosphatase 58, Total Protein 6.9, Albumin 4.0, Globulin 2.9, Albumin/Globulin Ratio 1.4, TSH 70.30 H D, Free T4 0.48 L I & O for Last 24 hours: Intake & Output 04/24/25 04/25/25 04/26/25 04/27/25 23:59 23:59 23:59 23:59 Intake Total 1100 / 1280 180 / 180 Output Total 300 / 300 1000 / 1000 Balance 800 / 980 -820 / -820 Weight 76.294 kg 74.298 kg Constitutional Constitutional: no acute distress and obese *Routine HEENT Exam Head: Present normocephalic Eye: Present EOMI and PERRL ENT: Present mucous membranes moist *Routine Neck Exam Neck: Present supple; Absent lymphadenopathy *Routine Respiratory Exam Respiratory: Present CTA bilaterally *Routine Cardiovascular Exam Cardiovascular: Present RRR *Routine Abdominal Exam Abdominal: Present soft and normoactive bowel sounds; Absent tenderness *Routine Extremities Exam Extremities: Absent cyanosis, clubbing or edema *Routine Skin Exam Skin: Present warm; Absent rash *Routine Neurological Exam Neurological: Present alert and oriented X3 Results Data Completed and Pending Labs on day of discharge: Labs from last 24 hours 04/27/25 04/26/25 05:53 06:20 WBC 5.3 RBC 4.54 Hgb 13.4 Hct 40.6 MCV 89.4 MCH 29.5 MCHC 33.0 RDW 15.2 Plt Count 179 MPV 10.8 H Neut % (Auto) 70.3 Lymph % (Auto) 14.2 [place] % (Auto) 11.6 H Eos % (Auto) 2.4 Baso % (Auto) 1.1 Neut # (Auto) 3.8 Lymph # (Auto) 0.8 [place] # (Auto) 0.6 Eos # (Auto) 0.1 Baso # (Auto) 0.1 Sodium 137 Potassium 3.4 L Chloride 107 Carbon Dioxide 25 Anion Gap 8.4 BUN 11 Creatinine 0.90 Estimated Creat Clear 64 Estimated GFR 62 Est GFR ( Amer) 76 Glucose 98 Calcium 8.4 Total Bilirubin 0.6 AST 29 ALT 16 Alkaline Phosphatase 58 Total Protein 6.9 Albumin 4.0 Globulin 2.9 Albumin/Globulin Ratio 1.4 TSH 70.30 H D Free T4 0.48 L Free T3 1.2 L DS: Diagnosis Discharge Diagnosis (1) Nausea & vomiting: Status: Acute Code(s): R11.2 - Nausea with vomiting, unspecified (2) Diarrhea: Status: Acute Code(s): R19.7 - Diarrhea, unspecified (3) Weight loss: Status: Acute Code(s): R63.4 - Abnormal weight loss (4) Fecal urgency: Status: Acute Code(s): R15.2 - Fecal urgency Meds Home Medications and Allergies Home Medications ?Medication ?Instructions ?Recorded ?Confirmed ?Type duloxetine 60 mg capsule,delayed 60 mg PO DAILY 04/26/25 04/26/25 History release hydroxychloroquine 200 mg tablet 200 mg PO BID 04/26/25 04/26/25 History leflunomide 20 mg tablet 20 mg PO DAILY 04/26/25 04/26/25 History omeprazole 20 mg tablet,delayed 20 mg PO BID 04/26/25 04/26/25 History release amlodipine 10 mg tablet 10 mg PO DAILY 30 days #30 tabs 04/27/25 Rx carvedilol 12.5 mg tablet 12.5 mg PO BID #60 tabs 04/27/25 Rx hydrochlorothiazide 25 mg tablet 25 mg PO DAILY #30 tabs 04/27/25 Rx levothyroxine 125 mcg capsule 125 mcg PO DAILY 60 days #60 caps 04/27/25 Rx New Prescriptions to Start Prescriptions: amlodipine Jamar,Channing carvedilol Jamar,Channing hydrochlorothiazide Jamar,Channing levothyroxine Jamar,Channing Allergies Allergy/AdvReac Type Severity Reaction Status Date / Time Penicillins Allergy Unknown Verified 04/26/25 02:51 allergy reaction upadacitinib (From Rinvoq) Allergy Unknown Verified 04/26/25 02:51 allergy reaction Discharge Plan Disposition Patient Disposition: Home Health Service Condition: Fair Discharge Order Discharge Orders: Discharge Order (Routine); Ordered 04/27/25 Ordered By: Channing Roldan Follow up Plan Follow up with: Benito Anguiano II, MD [Staff Physician, Gastroenterology] - 06/02/25 1:00 pm Klaus Saleem PA [Physician Conference Specialist, Cardiology] - 05/26/25 2:30 pm Irish Oquendo MD [Primary Care Provider, Family Practice] - 05/04/25 2:15 pm Prescriptions/Medication Reconciliation: New amlodipine 10 mg Tablet 10 mg PO DAILY 30 Days Qty: 30 0RF levothyroxine 125 mcg capsule 125 mcg PO DAILY 60 Days Qty: 60 0RF hydrochlorothiazide 25 mg tablet 25 mg PO DAILY Qty: 30 0RF carvedilol 12.5 mg tablet 12.5 mg PO BID Qty: 60 0RF Rx Instructions: must administer with a meal/food Continued hydroxychloroquine 200 mg Tablet 200 mg PO BID leflunomide 20 mg Tablet 20 mg PO DAILY duloxetine 60 mg Capsule,Delayed Release(Dr/Ec) 60 mg PO DAILY omeprazole 20 mg Tablet,Delayed Release (Dr/Ec) 20 mg PO BID Discontinued amlodipine 2.5 mg Tablet 2.5 mg PO DAILY Problem Reconciliation Problems Reviewed?: Yes Patient Discharge Instructions Additional Instructions: Please make sure you take levothyroxine on an empty stomach every day. Patient Instructions: High Blood Pressure, DI for Chest Pain Print Language: [place] Providers Primary Care Provider: Irish Oquendo Admit Provider: Channing Roldan Attending Provider: Channing Roldan
--- NOTE | 2025-04-27 14:42 | CARE MANAGER ---
Addendum entered by Elvira Martinez RN 04/27/25 15:03: Patient requested DME from [employer]. Information faxed. Original Note: Patient has difficulty ambulating to the bathroom and will require the use of a bedside commode.
--- NOTE | 2025-04-27 14:59 | EXP.CARD.CON ---
History of Present Illness History of Present Illness Consult date: 04/27/25 Requesting physician: Channing Roldan Consult reason: hypertension Chief complaint: HTN urgency Additional Medical History:: 1. Hypertension 2. History of rheumatoid arthritis/psoriatic arthritis 3. Tobacco use 4. History of abnormal EKG. History of present illness: 69-year-old white female transferred from [facility] for hypertensive urgency (systolic pressure greater than 100) treated 3 times in the last week. Patient denied chest pain but was seen in [facility] for feeling unwell, high blood pressure and falling not related to dizziness. She was given Nitropaste and clonidine with blood pressure reduction. EKG was sinus with LVH and T wave inversions laterally. Upon transfer to our hospital patient was completely asymptomatic with blood pressure 120/70 and was feeling normal but tired. Troponins here have been normal x 4. EKG is sinus at 67 bpm with inferior LA with T wave abnormalities laterally. Moderate voltage criteria for LVH. Upon talking with the patient she relates a chronic abnormal EKG with T wave abnormalities. [facility] Disclaimer: The information contained in this section may have been updated after the patient was seen, as this information can be updated by other users. Medical History (Updated 04/27/25 @ 15:06 by YESI Marina) Leaky heart valve Rheumatoid arthritis Hypertensive disorder Surgical History (Updated 04/26/25 @ 03:07 by Rajani Mejias RN) History of cholecystectomy History of bowel resection History of hysterectomy Social History (Updated 04/26/25 @ 03:28 by SALEEM Beebe) Smoking Status: Current every day smoker alcohol intake: never current occupational status: other Travel in the last 8 weeks?: None Review of Systems Review of Systems Review of systems:: pertinent systems reviewed and negative unless documented below *Cardiovascular Cardiovascular: Denies chest pain and Denies dyspnea *Respiratory Respiratory: Denies dyspnea *Gastrointestinal Gastrointestinal: Reports abdominal pain and Reports diarrhea *Neurologic Neurologic: Reports system reviewed and no additional complaints, except as documented Exam Data for Last 24 hours Vital signs and Labs for Last 24 Hours: Temp Pulse Resp BP Pulse Ox O2 Del Method 98.3 F 106 H 18 169/111 H 95 Room Air 04/27/25 07:15 04/27/25 08:00 04/27/25 07:15 04/27/25 07:15 04/27/25 12:30 04/27/25 13:00 Laboratory Results - last 24 hr 04/26/25 06:20: Free T3 1.2 L 04/27/25 05:53: WBC 5.3, RBC 4.54, Hgb 13.4, Hct 40.6, MCV 89.4, MCH 29.5, MCHC 33.0, RDW 15.2, Plt Count 179, MPV 10.8 H, Neut % (Auto) 70.3, Lymph % (Auto) 14.2, [place] % (Auto) 11.6 H, Eos % (Auto) 2.4, Baso % (Auto) 1.1, Neut # (Auto) 3.8, Lymph # (Auto) 0.8, [place] # (Auto) 0.6, Eos # (Auto) 0.1, Baso # (Auto) 0.1, Sodium 137, Potassium 3.4 L, Chloride 107, Carbon Dioxide 25, Anion Gap 8.4, BUN 11, Creatinine 0.90, Estimated Creat Clear 64, Estimated GFR 62, Est GFR ( Amer) 76, Glucose 98, Calcium 8.4, Total Bilirubin 0.6, AST 29, ALT 16, Alkaline Phosphatase 58, Total Protein 6.9, Albumin 4.0, Globulin 2.9, Albumin/Globulin Ratio 1.4, TSH 70.30 H D, Free T4 0.48 L I & O for Last 24 hours: Intake & Output 04/25/25 04/26/25 04/27/25 04/28/25 11:59 11:59 11:59 11:59 Intake Total 360 / 360 920 / 920 50 / 50 Output Total 0 / 0 300 / 300 1000 / 1000 Balance 360 / 360 620 / 620 -950 / -950 Weight 168 lb 3.192 oz 163 lb 12.8 oz Constitutional Constitutional: no acute distress *Routine Respiratory Exam Respiratory: Present CTA bilaterally; Absent rales, rhonchi or wheezes *Routine Cardiovascular Exam Cardiovascular: Present RRR; Absent murmur, gallop or rubs *Routine Neurological Exam Neurological: Present alert, oriented X3 and CN II-XII intact Meds Home Medications and Allergies Home Medications ?Medication ?Instructions ?Recorded ?Confirmed ?Type duloxetine 60 mg capsule,delayed 60 mg PO DAILY 04/26/25 04/26/25 History release hydroxychloroquine 200 mg tablet 200 mg PO BID 04/26/25 04/26/25 History leflunomide 20 mg tablet 20 mg PO DAILY 04/26/25 04/26/25 History omeprazole 20 mg tablet,delayed 20 mg PO BID 04/26/25 04/26/25 History release amlodipine 10 mg tablet 10 mg PO DAILY 30 days #30 tabs 04/27/25 Rx carvedilol 12.5 mg tablet 12.5 mg PO BID #60 tabs 04/27/25 Rx hydrochlorothiazide 25 mg tablet 25 mg PO DAILY #30 tabs 04/27/25 Rx levothyroxine 125 mcg capsule 125 mcg PO DAILY 60 days #60 caps 04/27/25 Rx New Prescriptions to Start Prescriptions: amlodipine Jamar,Channing carvedilol Jamar,Channing hydrochlorothiazide Jamar,Channing levothyroxine Jamar,Channing Allergies Allergy/AdvReac Type Severity Reaction Status Date / Time Penicillins Allergy Unknown Verified 04/26/25 02:51 allergy reaction upadacitinib (From [employer]) Allergy Unknown Verified 04/26/25 02:51 allergy reaction Assessment and Plan *Assessment and plan (1) Hypertensive urgency: Status: Acute Category: Medical Code(s): I16.0 - Hypertensive urgency (2) Abnormal EKG: Status: Acute Category: Medical Code(s): R94.31 - Abnormal electrocardiogram [ECG] [EKG] (3) Hypothyroidism: Status: Acute Qualifiers: Hypothyroidism type: unspecified Qualified Code(s): E03.9 - Hypothyroidism, unspecified Category: Medical Code(s): E03.9 - Hypothyroidism, unspecified (4) Enterocolitis: Status: Acute Category: Medical Code(s): K52.9 - Noninfective gastroenteritis and colitis, unspecified Plan 1. Hypertensive urgency at outside hospital -Resolved after treatment -Controlled on amlodipine and Avapro/HCTZ -Preliminary Echocardiogram shows normal EF with thickened Septal and LV ghosh but no significant valve disease. -Renal duplex pending -Normal troponins 2. Hypothyroidism, severe with TSH greater than 100 -Improved with levothyroxine treatment here down to 70 3. Chronic abnormal EKG - Previous cardiac evaluation by Dr. Swain in [place], [place] -Continue aspirin 81 mg daily 4. Enterocolitis with 30 pound weight loss this year per patient -Recent upper and lower endoscopy, Dr. Zackary Sullivan, in [facility] for discharge from cardiology standpoint. Follow up in office in 2 wks.
--- NOTE | 2025-04-27 15:02 | SW/DCPLANNER ---
Per PT no needs at this time.
--- NOTE | 2025-04-27 15:18 | HMH.PTEV ---
Physical Therapy Evaluation Rehab PT IP Evaluation Start: 04/26/25 11:40 Freq: ONCE Status: Active Protocol: Document 04/27/25 15:15 PHOTHAO (Rec: 04/27/25 15:18 PHORGEORGINA [id number]) Subjective/History History History 69 yowf adm to [facility] with general weakness, nausea, and vomiting. She reports N/V have been present for several months. She reports she lives with her daughter, 1 flight of stairs to enter the home, and she generally uses a RW for ambulation. She is generally independent with all ADLs. Subjective Subjective Pt reports no c/o at this time, agrees to mobility assessment. [facility] How much help from another person do you currently need... Turning from your None back to your side while in a flat bed without using bedrails? Moving from lying on None back to sitting on the side of a flat bed without using bedrails? Moving to and from a None bed to a chair ( including a wheelchair)? Standing up from a None chair using your arms? (e.g., wheelchair, bedside chair) Walking in hospital None room? Climbing 3-5 steps A little with a railing? Mobility Score 23 Mobility Level [facility] Mobility 7 Walk 25 feet or more Mobility Calculator Rehab PT IP Eval Objective Appearance Patient Behavior Appropriate Patient Orientation Person,Place,Time Difficulty following none instructions Speech Pattern Clear Ambulation Patient Able to Yes Ambulate Ambulation Observation IP General Gait Shuffling Step Pattern Observation Ambulation Distance 40 (feet) Ambulation Assistive None Device Ambulation Ability Independent Balance Ability to Arise Able, uses arms to help Sitting Balance Steady, safe Standing Balance Steady, wide stance Dynamic Sitting Good Balance Ability Dynamic Standing Good Balance Ability Transfers Bed Transfer Ability Independent Chair Transfer Independent Ability Sit to Stand Bed Independent Transfer Ability Sit to Stand Chair Independent Transfer Ability Rehab PT IP prob,goals,plan Problems Date of Evaluation: 04/27/25 Discharge Plan PT Discharge Plan Pt is independent with all mobility and has no current acute therapy needs. Recommend home health therapy services after discharge. Eval Complexity Eval Charge Codes 67730 - Moderate Complexity PHYSICIAN CERTIFICATION: I certify the specified therapy services for Ceci Falcon are required, authorized, and reviewed every 30 days.
--- NOTE | 2025-04-27 15:31 | SW/DCPLANNER ---
Addendum entered by Bobbi Arreola 04/28/25 10:35: [facility] is able to accept patient and will start services tomorrow. David Bess Addendum entered by Bobbi Arreola 04/28/25 09:38: [facility] is not able to accept patient due to being out of network with her insurance. David Bess Addendum entered by Bobbi Arreola 04/28/25 07:48: I faxed patient's information to [facility] will update once i hear back. David Bess Addendum entered by Bobib Arreola 04/28/25 07:32: [facility] is not able to accept patient due to her insurance. I will send patient's information to [facility] and [facility] and will update once i hear back if they are able to accept patient. David Bess Original Note: Spoke with patient once she is medically stable and ready for discharge regarding home health services. Patient stated that she is interested in home health and that she has no preference in what agency i send her information to. I also let patient know that with her insurance it is hard to get home health agency and if she would be interested in outpatient therapy at [facility] and patient stated that would be fine if she cant get home health. [facility] and will update once I hear back if they can accept or not. David Bess
--- NOTE | 2025-04-28 10:30 | SW/DCPLANNER ---
Spoke with patient on the phone. Patient stated that she is doing good but has fallen twice since she has been home. Patient stated that she is aware of her upcoming appointments. Patient stated that her daughter was able to sweet pickled fruit maker her new medicine. Patient stated that she has no concerns or questions at this time. David Bess
== END 2025-04-27 16:01 | disposition home health service (06) ==
PROVIDERS: Nurse Practitioner Acute Care; Admitting Provider Student in an Organized Health Care Education/Training Program; PCP Family Medicine Addiction Medicine; Visit Provider Student in an Organized Health Care Education/Training Program
DX: I16.0 Hypertensive urgency (principal); L40.50 Arthropathic psoriasis, unspecified; M06.9 Rheumatoid arthritis, unspecified; E87.6 Hypokalemia; E03.9 Hypothyroidism, unspecified; F17.200 Nicotine dependence, unspecified, uncomplicated; K52.9 Noninfective gastroenteritis and colitis, unspecified; K21.9 Gastro-esophageal reflux disease without esophagitis; F41.9 Anxiety disorder, unspecified; F32.A Depression, unspecified; I25.2 Old myocardial infarction; R91.8 Other nonspecific abnormal finding of lung field; Z91.148 Patient's other noncompliance with medication regimen for other reason; Z88.0 Allergy status to penicillin; Z88.8 Allergy status to other drugs, medicaments and biological substances; Z90.49 Acquired absence of other specified parts of digestive tract; Z79.899 Other long term (current) drug therapy
CPT/HCPCS: 36415; 74177; 78264; 80053; 80061; 81001; 83036; 83880; 84439; 84443; 84481; 84484; 85025; 87086; 93005; 93306; 93976; 96365; 96375; 96376; 97162; A9541; G0378; J0650; J0696; J2405; J2550; J2765; Q9967